=== PATIENT | male | born 1965 | race Caucasian/White ===

== ENCOUNTER 2022-05-31 08:26 | Inpatient (IN) ==
--- NOTE | 2022-05-16 14:53 | Anesthesiology Consultation ---
Date of Service May 16, 2022 Assessment & Plan (1) Encounter for pre-operative examination: Plan - 3 or more alcoholic drinks daily. - COVID screening: Per chain forming machine operator on 05/16/2022: Travel screen negative, no known COVID-19 positive contacts or current COVID-19 related symptoms in past 2 weeks. Pt vaccinated. Surgeon arranging preop COVID testing, scheduled 05/29/2022. Awaiting results. Chart Review Chart Review: Acceptable Risk for Surgery and Patient NOT seen in Pre Admission Testing History Surgery Operation Date: 05/31/22 10:35 Proposed Procedures p L3-S1 Decompression and Fusion - Artem Gaming DO Height/Weight Height: 6 ft 2 in Weight: 100.698 kg Allergies Allergy/AdvReac Type Severity Reaction Status Date / Time Penicillins Allergy Severe hives and Verified 05/16/22 13:40 swelling prednisone Allergy Severe rage and Verified 05/16/22 13:39 anger Medications Home Medications Medication Instructions Recorded Confirmed Last Taken acetaminophen 500 mg tablet 500 mg PO Q6H PRN Pain 05/16/22 05/16/22 Unknown (Acetaminophen Extra Strength) cholecalciferol (vitamin D3) 50 50 mcg PO QAM 05/16/22 05/16/22 Unknown mcg (2,000 unit) tablet (Vitamin D3) ibuprofen 800 mg tablet 800 mg PO TID PRN Pain 05/16/22 05/16/22 Unknown lisinopril 20 mg tablet 20 mg PO QAM 05/16/22 05/16/22 Unknown multivitamin 1 tab PO QAM 05/16/22 05/16/22 Unknown rosuvastatin 20 mg tablet 20 mg PO HS 05/16/22 05/16/22 Unknown turmeric root extract 500 mg tablet 500 mg PO BID 05/16/22 05/16/22 Unknown Past Medical History Medical History Chronic back pain Degenerative disc disease Hx of Esquivel's palsy ~2005, "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 treated with stimulation treatments. Hx of colonic polyp Hyperlipidemia Hypertension Migraine hx Peripheral neuropathy bilateral lower extremity Past Family History Family History Other No family history of adverse response to anesthesia Past Surgical History Surgical History H/O wisdom tooth extraction History of colonoscopy Hx of lumpectomy benign lumps removed from le[place] as a child S/P epidural steroid injection Social History Smoking Status: Former smoker tobacco type: cigarettes Do You Dip or Chew Tobacco: No Smoking End Date: 2019 Hx Alcohol Use: Yes Alcohol type: beer alcohol intake frequency: 3 or more drinks per day Hx Substance Use: No substance use type: does not use Lab Results Anesthesia Preop Results Results Anesthesia Widget: WBC 8.44 K/ul (4.8-10.8) 05/14/22 Hgb 15.4 g/dl (14.0-18.0) 05/14/22 Hct 45.4 % (40.1-51.0) 05/14/22 Plt 231 K/uL (130-400) 05/14/22 Na 138 mmol/L (136-145) 05/14/22 K 4.4 mmol/L (3.5-5.1) 05/14/22 Cl 100 mmol/L (98-107) 05/14/22 CO2 32 mmol/L (21-32) 05/14/22 BUN 9 mg/dl (6-23) 05/14/22 Creat 0.76 mg/dl (0.6-1.4) 05/14/22 Glucose Level 109 mg/dl (70-99(Fasting)) H 05/14/22 PT 10.3 Seconds (9.0-12.0) 05/14/22 INR 1.0 (0.9-1.1) 05/14/22 Urine Color Yellow 05/14/22 Urine Appearance Clear (Clear) 05/14/22 Urine pH 7.5 (4.5-7.5) 05/14/22 Urine Specific [place] 1.009 (1.000-1.030) 05/14/22 Urine Protein Negative (Negative) 05/14/22 Urine Glucose (UA) Negative (Negative) 05/14/22 Urine Ketones Negative (Negative) 05/14/22 Urine Blood Negative (Negative) 05/14/22 Urine Nitrite Negative (Negative) 05/14/22 Urine Bilirubin Negative (Negative) 05/14/22 Urine Urobilinogen Negative (Negative) 05/14/22 Urine Leukocyte Esterase Negative (Negative) 05/14/22 Blood Type O Positive 05/14/22 Antibody Screen NEGATIVE 05/14/22 Testing Electrocardiogram Date: 05/14/22 NSR, rate 73 bpm Chest X-Ray Date: 05/14/22 Cardiomediastinal and hilar silhouettes are within normal limits. No pneumothorax, pleural effusion, airspace consolidation or overt pulmonary edema. The bones of the chest appear grossly intact. Atherosclerosis of the thoracic aorta. IMPRESSION: No acute process.
[~2022-05-31 08:26] MED LIST: ACETAMINOPHEN 500 MG TAB PO SCH; CLINDAMYCIN/D5W 600 MG/54 ML BAG IV SCH; CeleBREX 200 MG CAP PO SCH; GABAPENTIN 600 MG DOSE PO SCH; LIDOCAINE 2% MPF LOCAL 5 ML VIAL INFIL ONE; LR 15ML/HR IV SCH; MIDAZOLAM HCL 1 MG/ML 2ML VIAL ONE; ONDANSETRON INJ 2 MG/ML 2 ML VIAL ONE; PROPOFOL IV EMULSION 10 MG/ML 20 ML VIAL IV ONE; ROCURONIUM BROMIDE 10 MG/ML 5 ML VIAL IV ONE; fentaNYL citrate 100 MCG/2 ML VIAL ONE
--- NOTE | 2022-05-31 09:55 | History & Physical Bridge Note ---
Date of Service May 31, 2022 History & Physical Bridge Note I have examined the patient, reviewed the History & Physical and in the interval since the performance of the History & Physical I have noted the following changes of clinical significance: no changes noted
--- NOTE | 2022-05-31 09:56 | History & Physical Report ---
Date of Service May 31, 2022 Assessment & Plan (1) Neurogenic claudication due to lumbar spinal stenosis: Plan: L3-S1 decompression and fusion History of Present Illness Chief Complaint: Back and bilateral leg pain Primary Care Provider: SPENSER ZALDIVAR This is a 57-year-old male presents with chronic persistent back and leg pain. Failing course of nonoperative care is here for surgical invention. Allergies Allergy/AdvReac Type Severity Reaction Status Date / Time Penicillins Allergy Severe hives and Verified 05/31/22 09:13 swelling prednisone Allergy Severe rage and Verified 05/31/22 09:13 anger Home Medications Medication Instructions Recorded Confirmed Type acetaminophen 500 mg tablet 500 mg PO Q6H PRN Pain 05/16/22 05/31/22 History (Acetaminophen Extra Strength) cholecalciferol (vitamin D3) 50 50 mcg PO QAM 05/16/22 05/31/22 History mcg (2,000 unit) tablet (Vitamin D3) ibuprofen 800 mg tablet 800 mg PO TID PRN Pain 05/16/22 05/31/22 History lisinopril 20 mg tablet 20 mg PO QAM 05/16/22 05/31/22 History multivitamin 1 tab PO QAM 05/16/22 05/31/22 History rosuvastatin 20 mg tablet 20 mg PO HS 05/16/22 05/31/22 History turmeric root extract 500 mg tablet 500 mg PO BID 05/16/22 05/31/22 History Past Med/Surg History Medical History Chronic back pain Degenerative disc disease Hx of Esquivel's palsy ~2005, "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 treated with stimulation treatments. Hx of colonic polyp Hyperlipidemia Hypertension Migraine hx Peripheral neuropathy bilateral lower extremity Surgical History H/O wisdom tooth extraction History of colonoscopy Hx of lumpectomy benign lumps removed from le[place] as a child S/P epidural steroid injection Family History Other No family history of adverse response to anesthesia Social History Smoking Status: Former smoker Smoking End Date: 2019; Second Hand Exposure: No; Do You Dip or Chew Tobacco: No; Tobacco Cessation Education Requested by Patient: No Hx Alcohol Use: Yes Alcohol type: beer Hx Substance Use: No Preferred Language: [place] Communication Ability: Effective Java Oracle Developer Required: No Beliefs That Will Affect Care: None Current Living Situation: Spouse Other Information That Helps Us Care for You: No Feels Safe at Home: Yes Safety Concerns: Feels Safe At This Time Assistive Devices: Glasses Physical Exam Physical Exam: Patient is alert and oriented Heart regular rhythm Lungs clear Results & Data Results & Data ([facility]) Vital Signs (Past 12 Hours) Vital Signs Temp Pulse Resp BP Pulse Ox O2 Del Method 05/31/22 09:16 36.5 C 96 H 18 175/115 H 96 Room Air
[2022-05-31] MEDS ORDERED: ATROPINE SULFATE 0.1 MG/ML 10ML SYR IV PRN (10:00)
[2022-05-31] MEDS ORDERED: ONDANSETRON INJ 2 MG/ML 2 ML VIAL IV PRN ×2 (10:00→16:12)
[2022-05-31] MEDS ORDERED: LABETALOL HCL IV 5 MG/ML 20ML IV PRN (10:00)
[2022-05-31] MEDS ORDERED: PROMETHAZINE HCL 12.5 MG in SODIUM CHLORIDE 0.9% 50 ML IV PRN ×2 (10:00→16:12)
[2022-05-31] MEDS ORDERED: BUPIVACAINE/EPINEPHRINE 0.25% 1:200,000 30 ML VIAL ONE (10:18)
[2022-05-31] MEDS ORDERED: ceFAZolin 330 MG/ML 1 GM VIAL ONE (10:19)
[2022-05-31] MEDS ORDERED: HYDROmorphone INJ 2 MG/ML SYR/VIAL ONE ×2 (10:46→15:07)
[2022-05-31] MEDS ORDERED: SUGAMMADEX SODIUM 200 MG/2 ML VIAL IV ONE (11:39)
[2022-05-31] MEDS ORDERED: ePHEDrine sulfate 50 MG/ML AMP ONE (11:41)
[2022-05-31] MEDS ORDERED: ALBUTEROL HFA INHALER 8.5 GM ONE (13:00)
[2022-05-31] MEDS ORDERED: FLOSEAL HEMOSTATIC MATRIX 10ML TOP ONE (13:08)
[2022-05-31] MEDS ORDERED: ONDANSETRON INJ 2 MG/ML 2 ML VIAL ONE (13:13)
[2022-05-31] MEDS ORDERED: ROCURONIUM BROMIDE 10 MG/ML 5 ML VIAL IV ONE ×5 (13:15)
--- NOTE | 2022-05-31 13:17 | Operative Report ---
Post Operative Report Pre & Post Diagnosis Operation Date: 05/31/22 10:10 Pre-Op Diagnosis: Lumbar spinal stenosis with neurogenic claudication Post-Op Diagnosis: Same I identified the patient and participated in the time-out.: Yes Procedure Operation Date: 05/31/22 10:10 Actual Procedures #1 lumbar decompression with bilateral medial facetectomies and foraminotomies L2-L3, L3-L4, L4-5 and L5-S1. #2 posterior spinal fusion L3-S1. #3 placement posterior segmental instrumentation L3-S1. #4 interbody fusion L3-L4. #5 placement of Spira 15 x 26 mm cage at L3-L4 per #6 placement locally harvested morselized autograft in the posterior gutters. #7 placement of I factor combined with V toss in the interbody space and posterior lateral gutters. Surgeon Artem Gaming, DO Snowboarding Instructor Bernardino Suresh Estimated Blood Loss 500 Findings Consistent with Post-Op Diagnosis Specimens None Indications This is a 57-year-old male presents with above-mentioned diagnosis and failing course of nonoperative care is here for the above-mentioned procedure. Description of Procedure Patient was met with identified informed consent obtained. Patient was then taken to the operative suite underwent ablation placed in a prone position on the Jc table on top of the Christophe frame. All bony prominences well-padded eyes inspected to ensure no external pressure placed upon them. This point the lumbar spine was prepped and draped in normal sterile fashion. Sharp dissection with the assistance of Bovie cautery was performed down to and exposing the lamina and transverse processes of L3-L4-L5 and the sacral ala bilaterally. From a caudal to cephalad fashion complete laminectomy of L5 L4 L3 and partial laminectomy of L2 was performed including bilateral medial facetectomies and foraminotomies addressing severe spinal stenosis. Pedicle screws were then placed at L3-L4-L5 and S1 levels bilaterally with assistance of fluoroscopy and appropriately sized bobbi placed. By way of entrance foraminal approach on the right a complete discectomy of L3-L4 was performed endplates curetted to subcortical bleeding bone and a 15 x 26 mm spiral cage filled with I factor tapped in position. Rods were then locked into final position bilaterally. The transverse processes of L3-L4-L5 and sacral ala burred to subcortical bleeding bone. I factor combined with V toss and locally harvested morselized autograft was placed in the posterior gutters. 15 round OUSMANE drain inserted. The incision was then closed with 1 Vicryl the fascia 2-0 Vicryl subcutaneously and 4 Monocryl for final skin closure. Steri-Strip sterile dressings placed. Patient waken taken to PACU stable condition. Please note spinal cord monitoring was utilized at the procedure no changes noted. Lastly Bernardino Suresh was present out the entire surgery and while the patient positioning complex portions of the surgery and fascial closure. I attest to the content of the Intraoperative Record and any orders documented therein. Any exceptions are noted below.
[2022-05-31] MEDS ORDERED: fentaNYL citrate 100 MCG/2 ML VIAL ONE (13:36)
[2022-05-31] MEDS ORDERED: SODIUM CHLORIDE 0.9% 50 ML BAG ONE (13:50)
[2022-05-31] MEDS ORDERED: PROMETHAZINE HCL INJ 25 MG/ML 1 ML VIAL ONE (13:50)
--- NOTE | 2022-05-31 14:02 | Fluoroscopy Report ---
FL lumbar spine 2-3V CLINICAL HISTORY: L3-S1 DECOMPRESSION AND FUSION COMPARISON STUDY: None FLUOROSCOPY TIME: 32 seconds. FLUOROSCOPIC IMAGES: 3 FINDINGS: Fluoroscopy was provided during L3-L4 discectomy with interbody spacer placement and finishing trimmer ior decompression with pedicle screw fusion. There are bilateral pedicle screws at the L3, L4 and S1 levels with a right pedicle screw at the L5 level. IMPRESSION: Fluoroscopy provided during L3-L4 discectomy and L3-S1 posterior decompression and pedic le screw fusion. ACT 112: Negative or not required by law. Electronically signed by: Redd Webster M.D. 05/31/2022 2:01 PM
[2022-05-31] MEDS: HYDROmorphone INJ 1 MG/ML SYRINGE IV PRN ×8 (15:06→15:41)
--- NOTE | 2022-05-31 15:23 | Anesthesiology Progress Note ---
Date of Service May 31, 2022 Anesthesia Post Procedure Vital Signs Vital Signs: Temp Pulse Resp BP Pulse Ox O2 Del Method O2 Flow Rate 05/31/22 15:10 90 16 107/64 97 Nasal Cannula 2 05/31/22 14:35 99 H 17 109/69 99 Nasal Cannula 2 05/31/22 14:20 36.6 C 99 H 18 117/71 99 Nasal Cannula 2 05/31/22 14:10 107 H 16 124/79 99 Oxymask 5 05/31/22 14:00 112 H 16 106/75 99 Oxymask 5 05/31/22 13:50 117 H 16 107/78 99 Oxymask 5 05/31/22 13:40 36.3 C L 114 H 16 102/67 98 Oxymask 5 05/31/22 09:16 36.5 C 96 H 18 175/115 H 96 Room Air Transfer of Care Handoff Completed per policy Notes Mental Status: alert / awake / arousable Patient Amnestic to Procedure: Yes Nausea / Vomiting: adequately controlled Pain: adequately controlled Airway Patency, RR, SpO2: stable & adequate BP & HR: stable & adequate Hydration State: stable & adequate Anesthetic Complications: no major complications apparent
[2022-05-31] MEDS ORDERED: bisacodyL 10 MG SUPP PR PRN (16:12)
[2022-05-31] MEDS ORDERED: ACETAMINOPHEN 1,000 MG/100 ML VIAL IV PRN (16:12)
[2022-05-31] MEDS ORDERED: HYDROmorphone INJ 1 MG/ML SYRINGE IV PRN (16:12)
[2022-05-31] MEDS ORDERED: SOD PHOSPHATE/SOD BIPHOSPHATE ENEMA 132 ML BTL PR PRN (16:12)
[2022-05-31] MEDS ORDERED: METOCLOPRAMIDE HCL INJ 5 MG/ML 2 ML VIAL IV PRN (16:12)
[2022-05-31] MEDS ORDERED: LORazepam 0.5 MG TAB PO PRN (16:12)
[2022-05-31] MEDS ORDERED: ONDANSETRON 4 MG OD TAB PO PRN (16:12)
[2022-05-31] MEDS ORDERED: hydrOXYzine HCl 25 MG TAB PO PRN (16:12)
[2022-05-31] MEDS ORDERED: HYDROmorphone INJ 0.5 MG/0.5 ML SYR IV PRN (16:12)
[2022-05-31] MEDS ORDERED: diphenhydrAMINE Capsule 25 MG CAP PO PRN (16:12)
[2022-05-31] MEDS ORDERED: LORazepam 0.5 MG in SYRINGE 0.25 ML IV PRN (16:12)
[2022-05-31] MEDS ORDERED: NALOXONE HCL 0.4 MG/1 ML VIAL/CARP IV PRN (16:12)
[2022-05-31] MEDS ORDERED: ALUMINUM/MAGNESIUM SUSP 30 ML UDC PO PRN (16:12)
[2022-05-31] MEDS ORDERED: MAGNESIUM HYDROXIDE SUSP 30 ML UDC PO PRN (16:12)
[2022-05-31] MEDS ORDERED: FAMOTIDINE 20 MG TAB PO PRN (16:12)
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
[2022-05-31] MEDS: KETOROLAC 30 MG/ML VIAL IV SCH ×2 (17:55→22:38)
[2022-05-31] MEDS: LACTATED RINGER'S 1,000 ML IV SCH ×2 (17:55→22:39)
[2022-05-31] MEDS: CLINDAMYCIN 600 MG in DEXTROSE 5% 50 ML IV SCH (17:55)
[2022-05-31] MEDS: DOCUSATE SODIUM/SENNA 50/8.6MG TAB PO SCH (20:19)
[2022-05-31] MEDS: ROSUVASTATIN CALCIUM 20 MG TAB PO SCH (20:19)
[2022-06-01] MEDS: CLINDAMYCIN 600 MG in DEXTROSE 5% 50 ML IV SCH (02:34)
[2022-06-01] MEDS: POLYETHYLENE (MIRALAX) 17 GM PACK PO SCH ×4 (05:23→23:14)
[2022-06-01] MEDS: KETOROLAC 30 MG/ML VIAL IV SCH ×2 (05:23→11:38)
[2022-06-01] MEDS: oxyCODONE HCL IR 5 MG TAB (IMMEDIATE RELEASE) PO PRN ×4 (05:23→20:06)
[2022-06-01] MEDS: LACTATED RINGER'S 1,000 ML IV SCH (07:13)
[2022-06-01 07:45] LABS: Basophils # (auto) 0.05 K/uL (0-0.2); Basophils % (auto) 0.6 %; Eosinophils # (auto) 0.23 K/uL (0-0.50); Eosinophils % (auto) 2.7 %; Hematocrit (blood only) 32.1 % (40.1-51.0); Hemoglobin 10.8 g/dl (14.0-18.0); Immature Granulocytes # (auto) 0.02 K/uL (0.00-0.02); Immature Granulocytes % (auto) 0.2 %; Lymphocytes # (auto) 1.93 K/uL (1.2-3.4); Lymphocytes % (auto) 22.6 %; Mean Corpuscular Hemoglobin 32.4 pg (25.0-34.0); Mean Corpuscular Hgb Conc 33.6 g/dL (32.0-36.0); Mean Corpuscular Volume 96.4 fL (80.0-100.0); Mean Platelet Volume 9.1 fL (9.4-12.4); Monocytes # (auto) 0.48 K/uL (0.24-0.82); Monocytes % (auto) 5.6 %; Neutrophils # (auto) 5.83 K/uL (1.4-6.5); Neutrophils % (auto) 68.3 %; Platelet Count 145 K/uL (130-400); RDW Standard Deviation 45.8 fL (36.4-46.3); Red Blood Count 3.33 M/uL (4.63-6.08); White Blood Count 8.54 K/ul (4.8-10.8)
[2022-06-01 08:09] LABS: BUN Creatinine Ratio 18.6 (10-20); Calcium 8.7 mg/dl (8.5-10.1); Est GFR (African American) 122.3 ml/min; Est GFR (Non-African American) 105.5 ml/min; Potassium 3.9 mmol/L (3.5-5.1)
[2022-06-01] MEDS: CHOLECALCIFEROL 1,000 UNITS 25 MCG TAB PO SCH (08:28)
[2022-06-01] MEDS: lisinopril 20 MG TAB PO SCH (08:28)
[2022-06-01] MEDS: MULTIVITAMIN TAB PO SCH (08:28)
[2022-06-01] MEDS: traMADol HCL 50 MG TABLET PO PRN ×2 (08:28→14:41)
--- NOTE | 2022-06-01 09:54 | Orthopedic Progress Note ---
Date of Service June 01, 2022 Assessment & Plan (1) Neurogenic claudication due to lumbar spinal stenosis: Plan: At this time continue physical therapy monitor his OUSMANE operatively discharge over the next few days. Admission and Anticipated Discharge Date Admission Date: May 31, 2022 Subjective Patient's back pain is controlled leg symptoms markedly improved Physical Exam Physical Exam: Patient is stable in bed. Discussed pain to testing. Appears comfortable. Results & Data ([facility]) Vital Signs (Past 12 Hours) Vital Signs Temp Pulse Resp BP Pulse Ox O2 Del Method 06/01/22 08:02 36.9 C 86 18 118/68 94 Room Air 06/01/22 03:45 36.8 C 83 18 103/66 97 Room Air 05/31/22 23:36 36.7 C 78 18 135/67 97 Room Air
--- NOTE | 2022-06-01 12:30 | Hospitalist Progress Note ---
Date of Service June 01, 2022 Assessment & Plan (1) Neurogenic claudication due to lumbar spinal stenosis: Plan: POD # 1- lumbar decompression and fusion L3-S1 - Pain control, DVT prophylaxis, PT/OT per primary team - Encourage incentive spirometry - Labs in AM #. Likely postoperative acute blood loss anemia: Preoperative hemoglobin 15.4 earlier in May, postoperative hemoglobin 10.8, patient without signs or symptoms of chest pain/palpitations/lightheadedness/dizziness. Continue to monitor, repeat labs in AM. (2) Hypertension: Plan: Resume Lisinopril (3) Hyperlipidemia: Plan: Continue statin Admission and Anticipated Discharge Date Admission Date: May 31, 2022 Subjective Patient seen and examined at bedside as a follow-up for medical management for status post lumbar decompression and fusion L3-S1 by Dr. Gaming on 05/31/2022. Patient was lying semiupright in bed, on room air, NAD, reports pain under control with pain medication, reports eating okay, reports moving gas but no bowel yet. Patient denies any fever/chills/chest pain/sore throat/cough/belly pain/other review of symptoms. Physical Exam Physical Exam: GENERAL: Alert and oriented x3. NAD, on RA. HEENT: No pallor, no icterus. Pupils equal, round and reactive to light. Oral mucosa moist. NECK: No JVD, no neck masses. HEART: S1 and S2 heard. Regular rate and rhythm. No murmur, no gallop. RESPIRATORY SYSTEM: Normal AP diameter. No accessory muscle use. No wheezing, no crackles. ABDOMEN: Soft, bowel sounds present, nontender, no distention. CENTRAL NERVOUS SYSTEM: No facial droop. Speech is clear. Obeys simple commands. Moves extremities. EXTREMITIES: No edema, no erythema seen. Lower back w/ clean dressing w/o soakage. OUSMANE drain with minimal serosanguineous collection noted. Results & Data Results & Data ([facility]) Vital Signs (Past 12 Hours) Vital Signs Temp Pulse Resp BP Pulse Ox O2 Del Method 06/01/22 08:02 36.9 C 86 18 118/68 94 Room Air 06/01/22 03:45 36.8 C 83 18 103/66 97 Room Air
[2022-06-01] MEDS: ACETAMINOPHEN 500 MG TAB PO PRN (14:40)
[2022-06-01] MEDS: DOCUSATE SODIUM/SENNA 50/8.6MG TAB PO SCH (20:06)
[2022-06-01] MEDS: ROSUVASTATIN CALCIUM 20 MG TAB PO SCH (20:07)
[2022-06-01] MEDS: CYCLOBENZAPRINE HCL 10 MG TAB PO PRN (23:14)
[2022-06-02] MEDS: oxyCODONE HCL IR 5 MG TAB (IMMEDIATE RELEASE) PO PRN ×4 (01:39→20:03)
[2022-06-02] MEDS: POLYETHYLENE (MIRALAX) 17 GM PACK PO SCH ×3 (06:06→17:52)
[2022-06-02] MEDS: ACETAMINOPHEN 500 MG TAB PO PRN (08:17)
[2022-06-02] MEDS: MULTIVITAMIN TAB PO SCH (08:17)
[2022-06-02] MEDS: CYCLOBENZAPRINE HCL 10 MG TAB PO PRN ×2 (08:17→16:45)
[2022-06-02] MEDS: lisinopril 20 MG TAB PO SCH (08:17)
[2022-06-02] MEDS: CHOLECALCIFEROL 1,000 UNITS 25 MCG TAB PO SCH (08:17)
[2022-06-02 09:25] LABS: Hematocrit (blood only) 31.7 % (40.1-51.0); Hemoglobin 10.5 g/dl (14.0-18.0); Mean Corpuscular Hemoglobin 32.7 pg (25.0-34.0); Mean Corpuscular Hgb Conc 33.1 g/dL (32.0-36.0); Mean Corpuscular Volume 98.8 fL (80.0-100.0); Mean Platelet Volume 9.5 fL (9.4-12.4); Platelet Count 160 K/uL (130-400); RDW Coefficient of Variation 12.6 % (11.5-14.5); RDW Standard Deviation 45.5 fL (36.4-46.3); Red Blood Count 3.21 M/uL (4.63-6.08); White Blood Count 6.98 K/ul (4.8-10.8)
--- NOTE | 2022-06-02 10:05 | XRay Report ---
PA CHEST RADIOGRAPH AND UPRIGHT AND SUPINE AP RADIOGRAPHS OF THE ABDOMEN CLINICAL HISTORY: ?SBO/Ileus COMPARISON STUDY: Chest radiograph May 14, 2022. FINDINGS: There is no pneumothorax. Slight blunting of the left costophrenic angle favors a trace le ft pleural effusion. No evidence for pulmonary edema. Mild left basilar opacity favors atelectasis. T here is no consolidation to suggest pneumonia. Cardiac size is normal. There is no free air. Postoper ative findings within the lumbosacral spine are noted. A surgical drain is in place. There is moderat e gaseous distention of the colon with multiple air-fluid levels. No definite small bowel dilatation is noted. IMPRESSION: 1. No free air. 2. Moderate colonic distention. This favors a postoperative ileus. A bowel obstruction could appear s imilar although is considered less likely. Radiographic follow-up is recommended. 3. Trace left pleural effusion. ACT 112: Negative or not required by law. Electronically signed by: Redd Webster M.D. 06/02/2022 10:03 AM
[2022-06-02] MEDS ORDERED: KETOROLAC 30 MG/ML VIAL IV PRN (10:24)
--- NOTE | 2022-06-02 10:24 | Orthopedic Progress Note ---
Date of Service June 02, 2022 Assessment & Plan (1) Neurogenic claudication due to lumbar spinal stenosis: Plan: This time continue physical therapy. Fortunately his OUSMANE drain is malfunctioning. We will maintain the drain until tomorrow. Most likely discharge home tomorrow. Admission and Anticipated Discharge Date Admission Date: May 31, 2022 Subjective Patient's back pain is controlled leg symptoms improved Physical Exam Physical Exam: On exam he is standing and ambulating well. Is good strength testing. Results & Data ([facility]) Vital Signs (Past 12 Hours) Vital Signs Temp Pulse Resp BP Pulse Ox O2 Del Method 06/02/22 08:20 36.8 C 80 18 119/74 96 Room Air
[2022-06-02] MEDS ORDERED: SOD PHOSPHATE/SOD BIPHOSPHATE ENEMA 132 ML BTL PR STA (10:53)
--- NOTE | 2022-06-02 15:42 | Hospitalist Progress Note ---
Date of Service June 02, 2022 Assessment & Plan (1) Neurogenic claudication due to lumbar spinal stenosis: Plan: POD # 1- lumbar decompression and fusion L3-S1 - Pain control, DVT prophylaxis, PT/OT per primary team - Encourage incentive spirometry - Labs in AM, liberal use of Bowel regimen. #. Likely postoperative acute blood loss anemia: Preoperative hemoglobin 15.4 earlier in May, postoperative hemoglobin around 10. patient without signs or symptoms of chest pain/palpitations/lightheadedness/dizziness. Continue to monitor, repeat labs in AM. (2) Hypertension: Plan: Resume Lisinopril (3) Hyperlipidemia: Plan: Continue statin Admission and Anticipated Discharge Date Admission Date: May 31, 2022 Subjective Patient seen and examined at bedside as a follow-up for medical management for status post lumbar decompression and fusion L3-S1 by Dr. Gaming on 05/31/2022. Patient was lying semiupright in bed, on room air, NAD, reports pain under control with pain medication, reports eating okay, has not moved bowel yet by bedside exam in AM, reported occasional belly discomfort, KUB XR done and reviewed, pt had small BM after enema today. Patient denies any fever/chills/chest pain/sore throat/cough/other review of symptoms. Physical Exam Physical Exam: GENERAL: Alert and oriented x3. NAD, on RA. HEENT: No pallor, no icterus. Pupils equal, round and reactive to light. Oral mucosa moist. NECK: No JVD, no neck masses. HEART: S1 and S2 heard. Regular rate and rhythm. No murmur, no gallop. RESPIRATORY SYSTEM: Normal AP diameter. No accessory muscle use. No wheezing, no crackles. ABDOMEN: Soft, bowel sounds present, nontender, no distention. CENTRAL NERVOUS SYSTEM: No facial droop. Speech is clear. Obeys simple commands. Moves extremities. EXTREMITIES: No edema, no erythema seen. Lower back w/ clean dressing w/o soakage. OUSMANE drain with minimal serosanguineous collection noted. Results & Data Results & Data ([facility]) Vital Signs (Past 12 Hours) Vital Signs Temp Pulse Resp BP Pulse Ox O2 Del Method 06/02/22 08:20 36.8 C 80 18 119/74 96 Room Air
[2022-06-02] MEDS: traMADol HCL 50 MG TABLET PO PRN (18:24)
[2022-06-02] MEDS: DOCUSATE SODIUM/SENNA 50/8.6MG TAB PO SCH (20:04)
[2022-06-02] MEDS: ROSUVASTATIN CALCIUM 20 MG TAB PO SCH (20:04)
[2022-06-03] MEDS: POLYETHYLENE (MIRALAX) 17 GM PACK PO SCH ×3 (00:06→12:29)
[2022-06-03] MEDS: oxyCODONE HCL IR 5 MG TAB (IMMEDIATE RELEASE) PO PRN ×4 (00:06→14:19)
[2022-06-03] MEDS: traMADol HCL 50 MG TABLET PO PRN (08:40)
[2022-06-03] MEDS: lisinopril 20 MG TAB PO SCH (08:40)
[2022-06-03] MEDS: CHOLECALCIFEROL 1,000 UNITS 25 MCG TAB PO SCH (08:40)
[2022-06-03] MEDS: MULTIVITAMIN TAB PO SCH (08:40)
--- NOTE | 2022-06-03 12:39 | Discharge Summary ---
Date of Service June 03, 2022 Admission HPI Per Admitting Provider This is a 57-year-old male presents with chronic persistent back and leg pain. Failing course of nonoperative care is here for surgical invention. Principal Diagnosis Lumbar spinal stenosis with neurogenic claudication Discharge Data Allergies Allergy/AdvReac Type Severity Reaction Status Date / Time Penicillins Allergy Severe hives and Verified 05/31/22 09:13 swelling prednisone Allergy Severe rage and Verified 05/31/22 09:13 anger Consultations 05/31/22 16:12 Consult Hospitalist Routine Procedures Performed Operation Date: 05/31/22 10:10 Actual Procedures p L3-S1 Decompression and Fusion, Interbody Placement L3-L4, Spinal Cord Monitoring(Not Applicable) - Artem Gaming DO Ordered Studies 05/31/22 11:30 [place] lumbar spine 2-3V Routine Hospital Course (1) Neurogenic claudication due to lumbar spinal stenosis: Patient with lumbar decompression fusion tolerated this well was taken to orthopedic for postoperative. Postop day 1 he was ambulating progressed to postop day 2 on postop day #3 the OUSMANE drain had decreased probably. Pain well controlled. Socially discharged home. Discharge orders instructions from the chart for further review. Total Time Total Time Spent Total Time Spent (In Minutes): 20 minutes Discharge Plan Discharge Items Patient Disposition: Home - Self-Care Reason For Visit: Intervertebral Disc Disorders with Radiculopathy Discharge Diagnosis: Lumbar spinal stenosis with radiculopathy Activity: As commented below Non-emergency contact: Primary Care Provider Call non-emergency contact if: you have any medication questions Follow-up/Referrals: SPENSER ZALDIVAR M.D. [Primary Care Provider] - Diet: Regular Addtl Attending Provider Instructions: ACTIVITY RECOMMENDATIONS: SELF CARE INSTRUCTIONS AFTER THORACIC/LUMBAR FUSIONS 1. You may walk to your tolerance. It is good exercise for your legs and back. Expect some back and intermittent leg aches and pains. 2. You may perform "counter-top" level activities (make a sandwich, adithya with a project, etc.). 3. No bending or lifting of more than 10 pounds or back twisting of any nature (roll like a log when turning in bed). 4. You may ride in a car for 20-30 minutes at a time. No driving until after your first visit with your doctor. 5. Frequent changes of position and restricting sitting to 30 minutes at a time will help limit the amount of back spasms and stiffness you may experience. 6. You may discontinue the use of ambulatory aids (cane, crutches, etc.) once your strength and confidence allow. 7. You may parking enforcer the shower and let water strike your incision when you arrive home at least once daily. Do not take a tub bath, sit in a hot tub or go into a swimming pool until after your first recheck in the office. SPECIAL CARE INSTRUCTIONS: VERY IMPORTANT TO READ AND REVIEW A. Your surgical incision has been closed with a cosmetic suture under the skin that will dissolve in about 6 weeks. In 14 days, you can use a pair of clean scissors and cut the suture that is left outside of the skin at the ends of your incision. 1. The small skin tapes can be removed 7 days after surgery if they have not fallen off by that point. 2. You may keep the wound open to air as much as possible to promote healing after post-op day number 5 unless told otherwise by your doctor. 3. If you think the wound looks like it is becoming infected (redness or worsening drainage) and/or you are experiencing fever, chill or worsening back pain and muscle spasms, contact the office so that we may evaluate you as soon as possible. B. Complications are uncommon, but please contact us if you have any signs or symptoms of: 1. wound infection (fever higher than 102.5 degrees F, redness, separation of wound, drainage, or increasing pain from the incision) 2. blood clots in legs (pain, swelling, redness and warmth in legs) 3. urinary tract infection (fever higher than 102.5 degrees F, burning upon urination or increased frequency of urination) 4. nerve problems (inability to walk on your toes or heels, numbness, loss of bowel or bladder control) 5. any other symptoms that concern you C. Please call the office at if you have any concerns or questions about your operation or recovery. D. No smoking! Smoking drastically decreases the chance of a solid fusion. E. Do not take any anti-inflammatory medications (Indocin, Advil, Motrin, Aspirin, Naprosyn, etc.) as these may inhibit the chance of a solid fusion. Tylenol is okay to take for pain. MANAGING PAIN AFTER SPINAL SURGERY 1. Narcotic medication is intended for short-term use and will be provided for surgical pain. Surgical pain usually lasts for a period of 4-6 weeks. Narcotic medication includes Percocet, Vicodin, Darvocet, Tylenol #3 or Lortab. 2. Longer-term pain is more appropriately treated with non-narcotic medication such as Tylenol ES. 3. Muscle spasm is not appropriately treated with narcotics. Muscle relaxers such as Soma, Flexeril or Skelaxin can be used along with Tylenol ES. 4. Remember that we all live with some "aches and pains". This is not unusual or uncommon after an injury or as we get older. a. Back pain is expected and may include muscle spasms for 4 to 6 weeks after surgery. The pain should gradually improve. If the pain worsens for no apparent reason, please contact the office. b. Intermittent leg pain may also be experienced and should not be concerned about unless it worsens for no apparent reason. If so, please contact the office. 5. We will provide appropriate medication within the normal guidelines of their prescribed use. We will also be very cautious and aware of potential abuse and extended duration of patients' medication needs. a. Pain medications are for your comfort and to assist with sleep and rest so that the tissue can heal. They are not provided in order to return to normal activity and should not be used through the day. To do so or worsening pain at night can result from ongoing tissue damage and development of tolerance to the prescribed medicine. 6. Please allow 2-3 days to process refills. Prescriptions will not be mailed but must be picked up at the office. FOLLOW UP VISIT: Keep your scheduled follow-up appointment. Any questions, please call the office at . Pending Studies at Discharge: No Stand-Alone Forms: [employer] Smoking Cessation Medications and DC Order Prescriptions: New tramadol 50 mg tablet 50 mg PO Q6H PRN (Reason: pain, moderate) Qty: 30 0RF oxycodone 5 mg tablet 5 mg PO Q6H PRN (Reason: pain, severe) Qty: 30 0RF Continued multivitamin Tablet 1 tab PO QAM lisinopril 20 mg Tablet 20 mg PO QAM acetaminophen [Acetaminophen Extra Strength] 500 mg Tablet 500 mg PO Q6H PRN (Reason: Pain) rosuvastatin 20 mg Tablet 20 mg PO HS turmeric root extract 500 mg Tablet 500 mg PO BID cholecalciferol (vitamin D3) [Vitamin D3] 50 mcg (2,000 unit) Tablet 50 mcg PO QAM Discontinued ibuprofen 800 mg Tablet 800 mg PO TID PRN (Reason: Pain) Discharge Orders: Discharge Order (Routine); Ordered 06/03/22 Ordered By: Artem Gaming Admission Data Admit Date/Time: 05/31/22 13:21 Attending Provider: Artem Gaming Admit Provider: Artem Gaming Primary Care Provider: SPENSER ZALDIVAR Other Providers: Neisha Gordon ; Rosemary Warner
--- NOTE | 2022-06-03 12:46 | Hospitalist Progress Note ---
Date of Service June 03, 2022 Assessment & Plan (1) Neurogenic claudication due to lumbar spinal stenosis: Plan: POD # 1- lumbar decompression and fusion L3-S1 - Pain control, DVT prophylaxis, PT/OT per primary team - Encourage incentive spirometry - [place] use of Bowel regimen. #. Likely postoperative acute blood loss anemia: Preoperative hemoglobin 15.4 earlier in May, postoperative hemoglobin around 10. patient without signs or symptoms of chest pain/palpitations/lightheadedness/dizziness. Hemoglobin stable, patient hemodynamically stable. Postoperative ileus, a complication of care: Patient had some belly discomfort with no bowel movement yesterday and x-ray KUB showed signs of postoperative ileus. Patient received bowel regimen and is moving bowels and has resolved belly discomfort now. Patient advised to continue with [id number] bowel regimen as long as he is on opiate pain meds. (2) Hypertension: Plan: Resume Lisinopril (3) Hyperlipidemia: Plan: Continue statin Admission and Anticipated Discharge Date Admission Date: May 31, 2022 Subjective Patient seen and examined at bedside as a follow-up for medical management for status post lumbar decompression and fusion L3-S1 by Dr. Gaming on 05/31/2022. Patient was lying semiupright in bed, on room air, NAD, reports pain under control, reports eating okay moving bowels okay. Patient denies any fever/chills/chest pain/sore throat/cough/other review of symptoms. Physical Exam Physical Exam: GENERAL: Alert and oriented x3. NAD, on RA. HEENT: No pallor, no icterus. Pupils equal, round and reactive to light. Oral mucosa moist. NECK: No JVD, no neck masses. HEART: S1 and S2 heard. Regular rate and rhythm. No murmur, no gallop. RESPIRATORY SYSTEM: Normal AP diameter. No accessory muscle use. No wheezing, no crackles. ABDOMEN: Soft, bowel sounds present, nontender, no distention. CENTRAL NERVOUS SYSTEM: No facial droop. Speech is clear. Obeys simple commands. Moves extremities. EXTREMITIES: No edema, no erythema seen. Lower back w/ clean dressing w/o soakage. OUSMANE drain with minimal serosanguineous collection noted. Results & Data Results & Data ([facility]) Vital Signs (Past 12 Hours) Vital Signs Temp Pulse Resp BP Pulse Ox O2 Del Method 06/03/22 08:50 36.9 C 85 18 165/95 H 92 Room Air
== END 2022-06-03 15:27 | disposition home or self-care (01) | DRG 454 ==
LOC: ASU 08:26 → 3N 13:21